=== PATIENT | male | born 1950 | race Caucasian/White ===

== ENCOUNTER 2018-06-25 09:14 | Outpatient (CLI) | payer BC, MEDICARE, SELFPAY | END 2018-06-25 09:34 | PROVIDERS: PCP Family Medicine; Visit Provider Physician Assistant | DX: R69 Illness, unspecified (principal) | CPT/HCPCS: 73560 ==

== ENCOUNTER 2019-04-15 08:23 | Outpatient (CLI) | payer BC, MEDICARE, SELFPAY ==
--- NOTE | 2019-04-15 08:30 | DI.RAD_ITS ---
SYMPTOM/DIAGNOSIS: RT KNEE PAIN, M25.569 RIGHT KNEE: Three views were obtained. There is narrowing of the medial tibiofemoral cartilaginous joint space. There may be narrowing of patellofemoral cartilaginous joint space as well. There are prominent enthesophytes at the tendon attachments on the patella. Mild marginal osteophyte formation noted involving medial tibiofemoral joint. Probable loose joint bodies seen posteriorly. 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
== END 2019-04-15 08:43 ==
PROVIDERS: PCP Family Medicine; Visit Provider Family Medicine
DX: M25.561 Pain in right knee (principal); M17.11 Unilateral primary osteoarthritis, right knee
CPT/HCPCS: 73562

== ENCOUNTER → 2020-06-16 04:27 | Outpatient (CLI) | payer OTHER, SELFPAY ==
[2020-06-16 12:43] LABS: HGB 13.8 g/dL (13.5-17.5); MCH 29.8 pg (27.0-33.0); MCHC 33.7 % (32.0-36.0); MCV 88.6 fL (80-95); MPV 12.1 fL (8.0-11.0); Platelet Count 124 10^3/uL (130-400); RBC 4.63 10^6/uL (4.36-5.78); RDW 12.9 % (11.8-14.1); RDW-SD 41.3 fL; WBC 5.38 10^3/uL (4.4-10.8)
[2020-06-16 13:29] LABS: COMMENT (LAB VIEW ONLY) 122.64 mg/dL; Microalb ug/mg Crea 27.8 ug/mg Cr
[2020-06-16 13:30] LABS: ALT 61 U/L (16-63); AST 40 U/L (15-37); Albumin 4.2 g/dL (3.4-5.0); Alkaline Phosphatase 72 U/L (46-116); Anion Gap 7.1 mmol/L (3-11); BUN 14 mg/dL (7-18); Bilirubin, Total 1.9 mg/dL (0.2-1.0); CO2 26.9 mmol/L (21.0-32.0); CREATININE 1.22 mg/dL (0.70-1.30); Calcium 9.2 mg/dL (8.5-10.1); Calculated LDL 67 mg/dL (<100); Chloride 102 mmol/L (98-107); Cholesterol 137 mg/dL (<200); Estimated GFR 58.56 (mL/min/1.73m2); Glucose 206 mg/dL (74-106); HDL Cholesterol 46 mg/dL (40-60); Sodium 136 mmol/L (136-145); Total Protein 7.3 g/dL (6.4-8.2); Triglyceride 124 mg/dL (<150)
[2020-06-16 14:16] LABS: Hemoglobin A1C 7.7 % (<5.7)
== END ==
PROVIDERS: PCP Family Medicine; Visit Provider Family Medicine
DX: E11.39 Type 2 diabetes mellitus with other diabetic ophthalmic complication (principal); E78.5 Hyperlipidemia, unspecified; I10 Essential (primary) hypertension; Z95.1 Presence of aortocoronary bypass graft
CPT/HCPCS: 36415; 80053; 80061; 85027; 82043; 82570; 83036

== ENCOUNTER → 2021-05-02 20:45 | Outpatient (CLI) | payer OTHER, SELFPAY ==
--- NOTE | 2021-05-02 09:30 | DI.US_ITS ---
Exam(s) US LOWER EXTREMITY VENOUS LT EXAM: US LOWER EXTREMITY VENOUS LT CLINICAL HISTORY: left leg pain, redness, swelling r/o DVT, M79.89. TECHNIQUE: Lower extremity venous ultrasound performed using grayscale, color-flow, and spectral Do ppler analysis. COMPARISON: No exams were available for comparison FINDINGS: The common femoral, femoral and popliteal veins demonstrate normal compressibility, augmentation, and color Doppler. The posterior tibial veins are patent. No superficial venous thrombosis is seen. S aphenous vein surgically resected. No hematoma or Vanessa's cyst is seen. IMPRESSION: Negative lower extremity ultrasound. No evidence of DVT. DATA REPOSITORY:
== END ==
PROVIDERS: PCP Family Medicine; Visit Provider Physician Assistant
DX: M79.89 Other specified soft tissue disorders (principal); M79.605 Pain in left leg
CPT/HCPCS: 93971

== ENCOUNTER 2021-05-24 03:16 | Outpatient (CLI) | payer OTHER, SELFPAY ==
[2021-05-24 12:50] LABS: ALT 65 U/L (16-63); AST 44 U/L (15-37); Albumin 3.8 g/dL (3.4-5.0); Alkaline Phosphatase 80 U/L (46-116); Anion Gap 6.2 mmol/L (3-11); BUN 18 mg/dL (7-18); Bilirubin, Total 1.9 mg/dL (0.2-1.0); CO2 29.8 mmol/L (21.0-32.0); CREATININE 1.4 mg/dL (0.70-1.30); Calcium 9.2 mg/dL (8.5-10.1); Chloride 102 mmol/L (98-107); Estimated GFR 49.82 (mL/min/1.73m2); Glucose 247 mg/dL (74-106); Sodium 138 mmol/L (136-145); Total Protein 7.1 g/dL (6.4-8.2)
[2021-05-24 12:54] LABS: Microalb ug/mg Crea 18.6 ug/mg Cr
[2021-05-24 13:08] LABS: Hemoglobin A1C 9.4 % (<5.7)
== END 2021-05-24 03:17 | disposition home or self-care (01) ==
LOC: LOS 03:17
PROVIDERS: PCP Family Medicine; Visit Provider Family Medicine
DX: E11.39 Type 2 diabetes mellitus with other diabetic ophthalmic complication (principal)
CPT/HCPCS: 36415; 80053; 82043; 82570; 83036

== ENCOUNTER 2022-01-04 01:50 | Outpatient (CLI) | payer MEDICARE, SELFPAY ==
[2022-01-04 13:10] LABS: Hemoglobin A1C 8.3 % (<5.7)
[2022-01-04 13:11] LABS: Anion Gap 8.7 mmol/L (3-11); BUN 16 mg/dL (7-18); CO2 30.3 mmol/L (21.0-32.0); CREATININE 1.2 mg/dL (0.70-1.30); Calcium 9.4 mg/dL (8.5-10.1); Chloride 99 mmol/L (98-107); Estimated GFR 59.51 (mL/min/1.73m2); Glucose 238 mg/dL (74-106); Potassium 4.9 mmol/L (3.5-5.1); Sodium 138 mmol/L (136-145)
== END 2022-01-04 01:51 | disposition home or self-care (01) ==
LOC: LOS 01:50
PROVIDERS: PCP Family Medicine; Visit Provider Family Medicine
DX: E11.39 Type 2 diabetes mellitus with other diabetic ophthalmic complication (principal)
CPT/HCPCS: 36415; 80048; 83036

== ENCOUNTER 2022-01-17 09:55 | Outpatient (REF) | payer MEDICARE, SELFPAY ==
[2022-01-18 17:56] LABS: COVID-19 RT-PCR UVMMC Result Positive (Negative)
== END 2022-01-17 09:56 | disposition home or self-care (01) ==
LOC: LBN 09:55
PROVIDERS: PCP Family Medicine; Visit Provider Family Medicine
DX: Z20.822 Contact with and (suspected) exposure to COVID-19 (principal)
CPT/HCPCS: U0003; U0005

== ENCOUNTER 2022-02-01 02:56 | Outpatient (CLI) | payer MEDICARE, SELFPAY ==
--- NOTE | 2022-02-01 14:00 | NS.NUTBLAN_ITS ---
Cirilo and his attend diabetes self management education. Cirilo is 71 years old with PMH of CABG, HTN, DM2, obesity. 5'7 227 lbs BMI: 35. A1C: 8.4% (12/2021), down from 9.4%(05/24/21). Has lost 10 lbs in last year. DM meds: 500 mg metformin BID Diet Recall: toast with PB, supper around 2 pm- homemade, snack at 8 pm: toast with cheese. Infrequent restaurant or take out meals. Walks daily 30 minutes Overall, Cirilo is managing his Dm2 well. Goal A1C for his age group with comorbidities is <8.5%. He does not do finger pricks but recommend he have one on hand in case he feels off. Reviewed symptoms for hyper and hypo glycemia. Reviewed ideal menu plans that are limited in carbohydrate and focus on lean protein and healthy fats. No follow up planned
== END 2022-02-01 02:57 | disposition home or self-care (01) ==
LOC: DS 02:56
PROVIDERS: PCP Family Medicine; Visit Provider Dietitian, Registered
DX: E11.9 Type 2 diabetes mellitus without complications (principal); Z79.84 Long term (current) use of oral hypoglycemic drugs; Z71.3 Dietary counseling and surveillance
CPT/HCPCS: 97802

== ENCOUNTER → 2022-03-09 08:23 | Outpatient (BNVA) | payer MEDICARE, SELFPAY | PROVIDERS: PCP Family Medicine; Referring Provider Family Medicine; Visit Provider Physical Therapy Assistant | DX: I10 Essential (primary) hypertension (principal); E11.9 Type 2 diabetes mellitus without complications; I25.10 Atherosclerotic heart disease of native coronary artery without angina pectoris; R13.19 Other dysphagia | CPT/HCPCS: 99214 ==

== ENCOUNTER 2022-03-20 04:09 | Outpatient (CLI) | payer MEDICARE, SELFPAY ==
[2022-03-20 12:47] LABS: Anion Gap 8.4 mmol/L (3-11); BUN 21 mg/dL (7-18); CO2 27.6 mmol/L (21.0-32.0); CREATININE 1.5 mg/dL (0.70-1.30); Calcium 9.3 mg/dL (8.5-10.1); Chloride 101 mmol/L (98-107); Estimated GFR 45.87 (mL/min/1.73m2); Glucose 270 mg/dL (74-106); Potassium 4.5 mmol/L (3.5-5.1); Sodium 137 mmol/L (136-145)
== END 2022-03-20 04:10 | disposition home or self-care (01) ==
LOC: LOS 04:09
PROVIDERS: PCP Family Medicine; Visit Provider Family Medicine
DX: E11.39 Type 2 diabetes mellitus with other diabetic ophthalmic complication (principal)
CPT/HCPCS: 36415; 80048

== ENCOUNTER → 2022-04-06 09:02 | Outpatient (BNVA) | payer MEDICARE, SELFPAY | PROVIDERS: PCP Family Medicine; Referring Provider Family Medicine; Visit Provider Physical Therapy Assistant | DX: R13.19 Other dysphagia (principal) | CPT/HCPCS: 99442 ==

== ENCOUNTER 2022-04-23 02:24 | Outpatient (CLI) | payer MEDICARE, SELFPAY ==
--- NOTE | 2022-04-23 13:37 | DI.US_ITS ---
APPROVED REPORT EXAM: Comprehensive 2D, Doppler, and color-flow Echocardiogram Patient Location: Out-Patient Ore Feeder: Shonda Chen RDCS (AE) Indications: Edema, Orthopnea, HTN, H/O CAD Other Information Study Quality: Adequate Conclusion Normal left ventricular wall thickness and chamber size. Estimated ejection fraction is 55 to 60%. Wall motion is normal Normal right ventricular size and systolic function The left atrium is mildly dilated. The right atrium is normal in size Aortic valve is sclerotic and trileaflet without stenosis or regurgitation Normal mitral valve, mild mitral regurgitation Normal tricuspid valve, trace regurgitation. Estimated right ventricular systolic pressure is 30 mmH g Mildly dilated ascending aorta measuring 3.88 cm Wall motion Left Ventricle The left ventricle is normal size. The left ventricular systolic function is normal. The left ventric ular ejection fraction is within the normal range. There is normal left ventricular wall thickness. T here is normal LV segmental wall motion. There is no ventricular septal defect visualized. LVEF is 57 %. Right Ventricle The right ventricle is normal size. The right ventricular systolic function is normal. The RVSP is 29 .9mmHg. Atria Left atrium is mildly dilated. The right atrium size is normal. The interatrial septum is intact with no evidence for an atrial septal defect. Aortic Valve The Aortic valve is sclerotic. Aortic valve is trileaflet. There is no aortic valvular stenosis. No a ortic regurgitation is present. Mitral Valve The mitral valve is normal in structure. No evidence of mitral valve stenosis. Mild mitral regurgitat ion. Tricuspid Valve The tricuspid valve is normal in structure. There is no tricuspid valve stenosis. Trace tricuspid reg urgitation. Pulmonic Valve The pulmonary valve is normal in structure. There is no pulmonic valvular stenosis. Mild pulmonic reg urgitation. Great Vessels The aortic root is normal in size. The ascending aorta is mildly dilated. Aortic arch is normal in ca liber. IVC is normal in size and collapses >50% with inspiration. Pericardium There is no pericardial effusion. 2D Dimensions IVSD d PLAX 1.08 cm M: 0.6-1.2 LV Vol A2C d MOD 156.1 mL LVPW d PLAX 1.07 cm M: 0.6 - 1.2 LV Vol A4C d MOD 164.3 mL LVID d PLAX 4.78 cm M: 4.2 - 5.8 LA vol/ BSA A2C s A-L 40.8 mL/m2 LVDs 3.30 cm M: 2.5 - 4.0 LA vol/ BSA A4C s A-L 37.5 mL/m2 Ao Root d 3.34 cm M: 3.1 - 3.7 LA Vol/ BSA Biplane s A-L 40.1 mL/m2 RA Area A4C 18.34 cm2 LA Area A4C s MOD 24.10 cm2 RA Vol/ BSA A4C s A-L 22.9 mL/m2 LA Area A2C s MOD 25.78 cm2 Ao Asc Diam d 3.88 cm M: 2.6 - 3.4 LV EF A4C MOD 57.1 % LV EF Teichholz 57.7 % LV EF A2C MOD 58.0 % LVEF (Dan's) 56.27 % M: 52 - 72 LV EF Biplane MOD 56.3 % LV Volume 120.05 mL M: 62 - 150 SV 91.67 mL LV Volume Index 56.89 mL/m2 M: 34 - 74 SV Index 43.45 mL/m2 LV Vol Biplane MOD 162.9 mL FS 30.35 % M-Mode TAPSE 1.36 cm (M/F) >1.7 LV Diastology MV E' medial 0.075 (>0.07 m/s) E/A Ratio 1.1 LV E/e MED 13.60 (<14) MV E Vmax 1.03 (0.4-1.3 m/s) MV E' lateral 0.078 (>0.1 m/s) MV A Vmax 0.90 (0.4-1.3 m/s) LV E/e LAT 13.10 (<14) MV E/A Ratio 1.12 MV E/E' medial 13.64 MV E/E' lateral 13.13 Aortic Valve LVOT Area 3.39 cm2 AoV Area Vmax 2.29 cm2 LVOT Vmax 1.17 m/s AoV Area/ BSA (Vmax) 1.08 cm2/m2 LVOT Mean Toni. 0.70 m/s BRUCE Mean Toni. 1.99 cm2 LVOT Peak Grad 5.5 mmHg BRUCE Mean Toni. Index 0.94 cm2/m2 LVOT Mean Grad 2.4 mmHg LVOT VTI 0.241 m LVOT Diam s 2.05 cm AoV Vmax 1.74 m/s Velocity Ratio 0.67 AoV Mean Toni. 1.18 m/s AoV Peak Grad 12.1 mmHg LVOT SV 81.65 mL AoV Mean Grad 6.3 mmHg AoV VTI 0.341 m AoV Area VTI 2.39 cm2 AoV Area/ BSA (VTI) 1.13 cm/m2 Mitral Valve MV DT 153 (160-240 msec) MV PHT 44 msec MV Area PHT 4.95 cm2 MV VTI 0.427 m MV Area VTI 1.91 (4.0-6.0 cm2) Pulmonary Valve PV Vmax 1.10 (0.5-1.5 m/s) RVOT Peak Gr. 2.07 mmHg PV Peak Grad 4.8 mmHg RVOT Mean Gr. 1.00 mmHg PV Mean Grad 2.4 mmHg RVOT VTI 0.159 m PV VTI 0.242 m RVOT Vmax 0.72 m/s Tricuspid Valve TR Peak Grad 26.8 mmHg TR Vmax 2.59 m/s RA Pressure 3.00 mmHg RVSP (TR) 29.9 mmHg
== END 2022-04-23 02:44 ==
LOC: DI 02:24
PROVIDERS: PCP Family Medicine; Visit Provider Family Medicine
DX: I10 Essential (primary) hypertension (principal); R06.01 Orthopnea; R60.0 Localized edema; I25.10 Atherosclerotic heart disease of native coronary artery without angina pectoris; I35.8 Other nonrheumatic aortic valve disorders; I34.0 Nonrheumatic mitral (valve) insufficiency
CPT/HCPCS: 93306

== ENCOUNTER 2023-05-07 02:44 | Outpatient (CLI) | payer MEDICARE, SELFPAY ==
[2023-05-07 13:00] LABS: Abs Immature Grans 0.01 10^3/uL (0.0-0.06); Absolute Basophil Count 0.06 10^3/uL (0.0-0.2); Absolute Eosinophil Count 0.42 10^3/uL (0.0-0.7); Absolute Lymphocyte Count 1.06 10^3/uL (1.2-3.4); Absolute Monocyte Count 0.36 10^3/uL (0.1-0.8); Basophils % 1.1; Eosinophils % 7.9; HGB 12.4 g/dL (13.5-17.5); Immature Grans % 0.2; MCH 29.5 pg (27.0-33.0); MCHC 34.4 % (32.0-36.0); MCV 86 fL (80-95); MPV 12.2 fL (8.0-11.0); Monocytes % 6.8; Platelet Count 129 10^3/uL (130-400); RDW 14.9 % (11.8-14.1); WBC 5.31 10^3/uL (4.4-10.8)
[2023-05-07 13:34] LABS: Vitamin D 25 Total 94.5 ng/mL (30-100)
[2023-05-07 13:37] LABS: ALT 34 U/L (16-63); AST 31 U/L (15-37); Albumin 3.7 g/dL (3.4-5.0); Alkaline Phosphatase 55 U/L (46-116); Anion Gap 8.9 mmol/L (3-11); BUN 21 mg/dL (7-18); Bilirubin, Total 1.9 mg/dL (0.2-1.0); CO2 27.1 mmol/L (21.0-32.0); CREATININE 1.4 mg/dL (0.70-1.30); Calcium 9.1 mg/dL (8.5-10.1); Chloride 103 mmol/L (98-107); Estimated GFR 52.74 (mL/min/1.73m2); Glucose 95 mg/dL (74-106); Potassium 4.4 mmol/L (3.5-5.1); Sodium 139 mmol/L (136-145); Total Protein 7.2 g/dL (6.4-8.2); Vitamin B12 509 pg/mL (193-986)
[2023-05-07 14:08] LABS: Hemoglobin A1C 5.4 % (<5.7)
[2023-05-07 14:13] LABS: COMMENT (LAB VIEW ONLY) 146.08 mg/dL; Microalb ug/mg Crea 16.6 ug/mg Cr
[2023-05-07 20:12] LABS: Parathyroid Hormone,Intact 25 pg/mL (19-88)
== END 2023-05-07 02:45 | disposition home or self-care (01) ==
LOC: LOS 02:44
PROVIDERS: PCP Family Medicine; Visit Provider Family Medicine
DX: E11.22 Type 2 diabetes mellitus with diabetic chronic kidney disease (principal); N18.31 Chronic kidney disease, stage 3a; Z00.00 Encounter for general adult medical examination without abnormal findings; E11.9 Type 2 diabetes mellitus without complications
CPT/HCPCS: 36415; 80053; 82306; 82043; 82570; 82607; 83036; 83970; 85025

== ENCOUNTER 2024-01-16 05:02 | Outpatient (CLI) | payer MEDICARE, SELFPAY ==
[2024-01-16 10:52] LABS: Abs Immature Grans 0.01 10^3/uL (0.0-0.06); Absolute Basophil Count 0.06 10^3/uL (0.0-0.2); Absolute Eosinophil Count 0.45 10^3/uL (0.0-0.7); Absolute Lymphocyte Count 1.11 10^3/uL (1.2-3.4); Absolute Monocyte Count 0.43 10^3/uL (0.1-0.8); Absolute Neutrophil Count 2.91 10^3/uL (1.2-6.7); Basophils % 1.2 %; Eosinophils % 9.1 %; HCT 34.4 % (40.0-50.0); HGB 11.8 g/dL (13.5-17.5); Immature Grans % 0.2 %; Lymphocytes % 22.3 %; MCH 29.6 pg (27.0-33.0); MCHC 34.3 % (32.0-36.0); MCV 86 fL (80-95); MPV 11.3 fL (8.0-11.0); Monocytes % 8.7 %; Neutrophils % 58.5 %; Platelet Count 145 10^3/uL (130-400); RBC 3.98 10^6/uL (4.36-5.78); RDW 13.8 % (11.8-14.1); RDW-SD 43.2 fL; WBC 4.97 10^3/uL (4.4-10.8)
[2024-01-16 11:03] LABS: Hemoglobin A1C 5.7 % (<5.7)
[2024-01-16 11:39] LABS: Iron 78 ug/dL (65-175)
[2024-01-16 11:54] LABS: ALT 33 U/L (16-63); AST 34 U/L (15-37); Albumin 4.1 g/dL (3.4-5.0); Alkaline Phosphatase 52 U/L (46-116); Anion Gap 4.8 mmol/L (3-11); BUN 27 mg/dL (7-18); Bilirubin, Total 2.6 mg/dL (0.2-1.0); CO2 27.2 mmol/L (21.0-32.0); CREATININE 2.2 mg/dL (0.70-1.30); Calcium 9.6 mg/dL (8.5-10.1); Chloride 102 mmol/L (98-107); Estimated GFR 30.66 (mL/min/1.73m2); Ferritin 50 ng/mL (26-388); Glucose 102 mg/dL (74-106); Potassium 4.1 mmol/L (3.5-5.1); Sodium 134 mmol/L (136-145); Total Protein 7.5 g/dL (6.4-8.2)
== END 2024-01-16 05:03 | disposition home or self-care (01) ==
PROVIDERS: PCP Family Medicine; Visit Provider Family Medicine
DX: E11.9 Type 2 diabetes mellitus without complications (principal); E11.22 Type 2 diabetes mellitus with diabetic chronic kidney disease; N18.31 Chronic kidney disease, stage 3a; D64.9 Anemia, unspecified; D69.6 Thrombocytopenia, unspecified
CPT/HCPCS: 36415; 80053; 82728; 83036; 83540; 85025

== ENCOUNTER → 2024-01-21 00:18 | Outpatient (CLI) | payer MEDICARE, SELFPAY ==
--- NOTE | 2024-01-21 06:34 | DI.US_ITS ---
Exam(s) US ABDOMEN RENAL EXAM: US ABDOMEN RENAL CLINICAL HISTORY: nocturia, worsening renal fxn,fatty liver disease,bph,k76.0, BPH, N40.1, N1 TECHNIQUE: Ultrasound abdomen performed using standard protocol. COMPARISON: No exams were available for comparison FINDINGS: ABDOMINAL AORTA AND IVC: The proximal mid abdominal aorta cannot be seen. The distal aorta is of nor mal caliber. PANCREAS: Normal where visualized. LIVER: The liver has a heterogeneous echotexture and a nodular contour raising the question of hepati c cirrhosis. Please correlate clinically. Hepatopedal flow in the Portal Vein. The liver measures 1 7 cm long. GALLBLADDER: Status post cholecystectomy. BILIARY SYSTEM: Common bile duct measures < 7 mm. No intrahepatic biliary ductal dilation. SPLEEN: The spleen measures 13.9 cm in length. ASCITES: None seen. Renal size in cm: Right: . Left: . Echogenicity: Normal. Hydronephrosis: No. Cyst or mass: There is a 2.1 cm simple cyst in the right kidney. There are few simple left renal cys ts. The largest measures 3 cm and is located in the upper pole. No follow-up is recommended. Nephrolithiasis: No. Other findings: None. Bladder:Normal. Ureteral jets: Right: Visualized and unremarkable. Left: Visualized and unremarkable. Prevoid vol:308 cc Postvoid vol:213 cc Prostate: 35 cc Renal color flow: Symmetric and within normal limits. IMPRESSION: 1. The liver has a heterogeneous echotexture with a nodular contour raising the question of hepatic c irrhosis. Please correlate clinically. 2. Status post cholecystectomy. No biliary ductal dilatation. 3. Spleen is mildly enlarged. 4. Bilateral simple renal cysts. No follow-up is recommended. 5. Mildly enlarged prostate gland. Large postvoid urinary bladder volume. DATA REPOSITORY:
== END ==
PROVIDERS: PCP Family Medicine; Visit Provider Family Medicine
DX: K76.0 Fatty (change of) liver, not elsewhere classified (principal); N40.1 Benign prostatic hyperplasia with lower urinary tract symptoms
CPT/HCPCS: 76770; 76700

== ENCOUNTER 2024-01-28 05:03 | Outpatient (CLI) | payer MEDICARE, SELFPAY ==
[2024-01-28 14:09] LABS: INR 1.3 (0.9-1.1); Prothrombin Time 12.6 sec (9.1-11.1)
[2024-01-28 15:59] LABS: PROTEIN 6.9 mg/dL (0.0-11.9)
[2024-01-28 16:03] LABS: COMMENT (LAB VIEW ONLY) 132.21 mg/dL; Microalb ug/mg Crea 4.8 ug/mg Cr
[2024-01-28 23:07] LABS: PSA, Screening 1.6 ng/mL (<=6.5)
[2024-01-29 10:55] LABS: HBs Antibody, Qual Negative (See Note); HBs Antibody, Quant <3.1 mIU/mL (See Note); Hepatitis B Core Antibody Negative (Negative); Hepatitis B surface Ag Negative (Negative); Hepatitis C Ab w Rflx HCV PCR Negative (Negative)
== END 2024-01-28 05:04 | disposition home or self-care (01) ==
PROVIDERS: PCP Family Medicine; Visit Provider Family Medicine
DX: N18.32 Chronic kidney disease, stage 3b (principal); Z12.5 Encounter for screening for malignant neoplasm of prostate; K76.0 Fatty (change of) liver, not elsewhere classified; Z79.01 Long term (current) use of anticoagulants
CPT/HCPCS: 36415; 84153; 86704; 86706; 86803; 87340; 82043; 82570; 84156; 85610

== ENCOUNTER → 2024-03-27 07:05 | Outpatient (BNVA) | payer MEDICARE, SELFPAY | PROVIDERS: PCP Family Medicine; Referring Provider Family Medicine; Visit Provider Physical Therapy Assistant | DX: L81.9 Disorder of pigmentation, unspecified (principal) | CPT/HCPCS: 99213 ==

== ENCOUNTER 2025-01-21 03:17 | Outpatient (CLI) | payer MEDICARE, SELFPAY ==
[2025-01-21 07:41] LABS: COMMENT (LAB VIEW ONLY) 114.17 mg/dL; Microalb ug/mg Crea 14.9 ug/mg Cr
[2025-01-21 07:42] LABS: ALT 31 U/L (16-63); AST 32 U/L (15-37); Albumin 3.9 g/dL (3.4-5.0); Alkaline Phosphatase 75 U/L (46-116); Anion Gap 6.9 mmol/L (3-11); BUN 28 mg/dL (7-18); Bilirubin, Total 1.9 mg/dL (0.2-1.0); CO2 30.1 mmol/L (21.0-32.0); CREATININE 1.6 mg/dL (0.70-1.30); Calcium 9.5 mg/dL (8.5-10.1); Calculated LDL 45 mg/dL (<100); Chloride 102 mmol/L (98-107); Cholesterol 102 mg/dL (<200); Estimated GFR 44.65 (mL/min/1.73m2); Glucose 144 mg/dL (74-106); HDL Cholesterol 39 mg/dL (>or=40); Potassium 4.3 mmol/L (3.5-5.1); Sodium 139 mmol/L (136-145); Total Protein 7.4 g/dL (6.4-8.2); Triglyceride 94 mg/dL (<150)
== END 2025-01-21 03:18 | disposition home or self-care (01) ==
PROVIDERS: PCP Family Medicine; Visit Provider Family Medicine
DX: E11.9 Type 2 diabetes mellitus without complications (principal); E11.22 Type 2 diabetes mellitus with diabetic chronic kidney disease; N18.32 Chronic kidney disease, stage 3b
CPT/HCPCS: 36415; 80053; 80061; 82043; 82570; 83036

== ENCOUNTER 2025-03-29 01:15 | Outpatient (CLI) | payer MEDICARE, SELFPAY ==
--- NOTE | 2025-03-29 06:45 | DI.RAD_ITS ---
Exam(s) XR KNEE LT 3V AP,LAT,TJ EXAM: XR KNEE LT 3V AP,LAT,TJ CLINICAL HISTORY: left knee pain,M25.562. TECHNIQUE: 2D digital imaging was performed. Three images were obtained. AP, lateral and AP tunnel views were obtained. COMPARISON: CR LEFT KNEE LIMITED 1 OR 2 VIEWS from 06/13/2015 FINDINGS: BONES: There are stable post operative changes of a left total knee arthroplasty present. No fracture or dislocation. There are enthesophytes at the anterior patella. JOINTS: The orthopedic hardware is in good position. No evidence of hardware loosening. SOFT TISSUE: Vascular calcifications are seen in the soft tissues. Surgical clips are seen in the soft tissues posterior to the femur. IMPRESSION: Stable left total knee arthroplasty. DATA REPOSITORY: RADIATION DOSE DELIVERED:
--- NOTE | 2025-03-29 06:45 | DI.RAD_ITS ---
Exam(s) XR ELBOW LT COMPLETE EXAM: XR ELBOW LT COMPLETE CLINICAL HISTORY: left elbow bursitis,M70.22. TECHNIQUE: 2D digital imaging was performed of the left elbow. Three images were obtained. AP, lateral and oblique views were obtained. COMPARISON: No exams were available for comparison FINDINGS: BONES: No acute fracture is present. No bony destructive lesion is seen. There is a large enthesophyte at the olecranon. JOINTS: There are mild degenerative changes seen in the elbow. There is a spur arising from the coronoid process. There is also mild spurring of the radial head. No joint effusion is seen. SOFT TISSUE: There is soft tissue swelling over the olecranon. IMPRESSION: 1. Arthrosis of the left elbow. 2. Large enthesophyte of the olecranon. Soft tissue swelling over the olecranon. This may represent a bursitis. MRI may be considered for further evaluation. DATA REPOSITORY: RADIATION DOSE DELIVERED:
--- NOTE | 2025-03-29 06:49 | DI.RAD_ITS ---
Exam(s) XR HIP LT COMPLETE AP PELVIS EXAM: XR HIP LT COMPLETE AP PELVIS CLINICAL HISTORY: left knee pain ? hip,Z96.659,S/P TOTAL KNEE ARTHROPLASTY. TECHNIQUE: 2D digital imaging was performed of the left hip. Views were obtained. AP pelvis and lateral left hip views were obtained. COMPARISON: No exams were available for comparison FINDINGS: BONES: No acute fracture is present. No bony destructive lesion is seen. JOINTS: No dislocation present. There is marked narrowing of the superior left hip joint space with bone on bone. Subchondral cysts are seen. There is an osteophyte on the acetabulum. The right hip shows more moderate narrowing of the joint space. There is a subchondral cyst in the acetabular roof. The sacroiliac joints and symphysis pubis are well maintained. SOFT TISSUE: Vascular calcifications are present. Surgical clips are seen in the left thigh. IMPRESSION: Marked degenerative changes of the left hip. DATA REPOSITORY: RADIATION DOSE DELIVERED:
== END 2025-03-29 01:35 ==
LOC: DI 01:15
PROVIDERS: PCP Family Medicine; Visit Provider Family Medicine
DX: M16.12 Unilateral primary osteoarthritis, left hip (principal); M70.22 Olecranon bursitis, left elbow; Z96.652 Presence of left artificial knee joint
CPT/HCPCS: 73562; 73080; 73502

== ENCOUNTER → 2025-04-30 11:00 | Outpatient (BNVA) | payer MEDICARE, SELFPAY | PROVIDERS: PCP Family Medicine; Referring Provider Family Medicine; Visit Provider Physician Assistant | DX: M16.12 Unilateral primary osteoarthritis, left hip (principal) | CPT/HCPCS: 20611; J1010 ==